=== PATIENT | female | born 2005 | race Caucasian/White ===

== ENCOUNTER 2024-08-30 12:23 | Emergency (ER) | payer BC, SELFPAY ==
[2024-08-30 12:47] VITALS: BP 132/69
--- NOTE | 2024-08-30 13:28 | ED.GENMED ---
History of Present Illness
General
Chief Complaint: Anxiety
Time Seen by Provider: 08/30/24 13:28
History of Present Illness
History of Present Illness:
TIME OF INITIAL ENCOUNTER: 1:30 PM
HPI: Upon my initial evaluation, the patient tells me 'I did not know what else to do'. She woke up with sensation of severe anxiety. She then developed bilateral facial tingling. She had questionable chest pain and shortness of breath. She has
had issues with anxiety in the past. She thought about self harming but did not do it. She has a history of self-harm from 3 years ago. She was seeing a therapist as an outpatient but 'things got weird' and she no longer seeing anybody. She
currently denies desire to harm self/denies thoughts of suicide.
EXAM:
GENERAL: Well appearing in no distress, but she appears tearful and upset
HEENT: Moist oral mucosa
CARDIOVASCULAR: No murmurs, normal heart rate, regular rhythm, No chest wall tenderness
PULMONARY: No respiratory distress, breath sounds are clear and equal
ABDOMEN: Soft with no peritoneal signs, no tenderness
NEUROLOGIC: Excellent strength all extremities, no coordination deficits
PSYCHIATRIC: Tearful and upset
EXTREMITIES: Nontender, no edema, moves all extremities equally
SKIN: No rash, no lesions
NUMBER AND COMPLEXITY OF PROBLEMS ADDRESSED AT THE ENCOUNTER
� Chronic conditions affecting care: Anxiety, gastritis
� Acute Exacerbation and/or Progression of Chronic Illness: This is an acute but recurring problem
� Differential Diagnosis includes: Severe anxiety, undiagnosed bipolar disorder depression, alcohol use disorder
AMOUNT AND/OR COMPLEXITY OF DATA TO BE REVIEWED AND ANALYZED
� I performed an independent evaluation of and my interpretation is:
EKG:
CT:
X-rays:
Laboratory Studies: CBC, chemistries, alcohol, hCG all negative
Other:
� Review of other/old records: I reviewed records, the patient has not been here in the past related to behavioral health/anxiety issues. She has been here twice in 2022 with abdominal
� Clinical information was obtained by an independent historian: I spoke to friend at bedside
� Prescriptions/Medications Considered but not given: Will hold off on prescription for benzo given the high addiction potential and her young age.
� Further testing considered but not performed:
RISK OF COMPLICATIONS AND/OR MORBIDITY OR MORTALITY OF PATIENT MANAGEMENT
� Social determinants of health affecting care: Lives at home, has friend at bedside currently
� Discussion with other providers: 1:35 PM: I have asked ann marie for consult and discussed case with Emmie
� Escalation of care including admission/observation vs risk of discharge considered: The patient tells me that she does not feel that she is a threat to her self. She denies any thoughts of suicide however she did have thoughts
of self-harm (cutting as she has done in the past). She appears markedly anxious and tearful�will give a one-time dose of benzos currently and check lab as she does have recent alcohol use as well.
ANY OTHER UPDATES:
3:05 PM: I reassessed patient. The patient is markedly improved. She was given a dose of Ativan. She was seen by ann marie Olea who recommends outpatient management and has given additional referral.
Past History
Past History
ED Past Medical History: Other (Gastritis)
ED Past Surgical History: None
Social History
Tobacco: Non-smoker
Alcohol: None
Drug: None
Personal: Single
Living: with roommate
Employment: Student
Family History
Family History: Other (Noncontributory)
Phy Exam
Physical Exam
Physical Exam:
See HPI
Course
Orders/Labs/Results
Orders:
Orders
08/30/24 12:51
Crisis Consult Urgent
Reason for Consult: SI, anxiety, alcoholism
08/30/24 13:38
Lorazepam [Ativan] 1 mg IV NOW STA
Test Result ONCE
08/30/24 14:17
Alcohol Urgent
Basic Metabolic Panel Urgent
Complete Blood Count/With Diff Urgent
HCG, Serum Qualitative Screen Urgent
08/30/24 14:17
08/30/24 14:17
Vital Signs
Initial and Last Documented VS:
Initial Vital Signs
Temp Pulse Resp BP Pulse Ox
37.1 C 93 20 132/69 100
08/30/24 12:47 08/30/24 12:47 08/30/24 12:47 08/30/24 12:47 08/30/24 12:47
Last Documented Vital Signs
Temp Pulse Resp BP Pulse Ox
37.1 C 93 20 132/69 100
08/30/24 12:47 08/30/24 12:47 08/30/24 12:47 08/30/24 12:47 08/30/24 12:47
*Critical Care Note
Total Time (30-74mins, 75-104mins- exclusive of procedures): Not Applicable
ED Attending Note
-
Portions of this chart may have been created with voice recognition software.� Occasional wrong word or��sound alike� substitutions may have occurred due to the inherent limitations of voice recognition software.
Discharge Plan
Departure
Patient Disposition: Home (Routine Discharge)
Date of Disposition: 08/30/24
Time of Disposition: 15:04
Patient with high blood pressure during this ER visit?: Yes
Discharge Problem:
Anxiety
Instructions: Anxiety, Adult (DC), BLOOD PRESSURE
Prescriptions:
No Action
loperamide [Imodium A-D] 2 mg capsule
2 mg PO Q6H PRN (Reason: loose stool) Qty: 20 0RF
pantoprazole [Protonix] 20 mg tablet,delayed release (DR/EC)
20 mg PO DAILY Qty: 20 0RF
Referrals:
Esteban Mcknight MD [Family Provider] -
Activity Restrictions/Additional Instructions:
We did give a one-time dose of Ativan. I generally do not recommend a prescription for these kind of medications as they are highly. They work best when only rarely taken. Your blood work is normal. Alcohol level is undetected. test
is negative. Please follow-up as recommended by Emmie, the river transportation worker. Return here if worse or other concerns.
Interventions
Interventions:
*Risk Screen - Suicide Last Done: 08/30/24 12:47
*General Assessment Last Done: 08/30/24 14:10
*Neglect/Abuse Screening Last Done: 08/30/24 14:10
*ED COVID-19 Vaccine History Last Done: 08/30/24 14:10
ED-Psychological Assessment Last Done: 08/30/24 14:10
Discharge Date and Time
Print Language: BARBADIAN
[2024-08-30] MEDS: ATIVAN 1 MG IV (14:15)
[2024-08-30 14:35] LABS: % Basophils 0.7 % (0-2); % Eosinophils 0.1 % (0-6); % Immature Granulocytes 0.4 % (0-0.5); % Monocytes 5.2 % (1.7-9.3); % Neutrophils 67.6 % (42.2-75.2); Absolute Basophils 0.1 10^3/uL (0-0.2); Absolute Lymphocytes 2.5 10^3/uL (1.2-3.4); Absolute Monocytes 0.5 10^3/uL (0.1-0.6); Absolute Neutrophils 6.5 10^3/uL (1.4-6.5); Hematocrit 44.1 % (37.0-47.0); Mean Corpuscular Hgb 30.7 pg (27.0-31.0); Mean Corpuscular Volume 90.4 fL (81.0-99.0); Mean Platelet Volume 9.7 fL (7.4-10.4); Nucleated Red Blood Cells % 0 %; Platelet Count 282 10^3/uL (130-400); Red Blood Cell Count 4.88 10^6/uL (4.20-5.40); Red Cell Dist. Width 12.8 % (11.5-14.5); White Blood Cell Count 9.7 10^3/uL (4.8-10.8)
[2024-08-30 14:45] LABS: HCG, Serum Qualitative Screen Negative
[2024-08-30 14:53] LABS: Blood Urea Nitrogen 17 mg/dl (7-17); Calcium 9.8 mg/dl (8.4-10.2); Carbon Dioxide 26 mmol/L (22-30); Chloride 100 mmol/L (98-107); Glucose 83 mg/dl (70-99); Potassium 4.3 mmol/L (3.5-5.1); Sodium 140 mmol/L (135-145); eGFR > 60.00
[2024-08-30 14:57] LABS: Alcohol None Detected
[2024-08-30 15:27] VITALS: BP 112/65
== END 2024-08-30 16:28 | disposition home or self-care (01) ==
LOC: EMR 12:23
PROVIDERS: EMERGENCY PHYSICIAN Emergency Medicine; FAMILY PHYSICIAN Internal Medicine
DX: F41.9 Anxiety disorder, unspecified (principal); Z91.52 Personal history of nonsuicidal self-harm; R03.0 Elevated blood-pressure reading, without diagnosis of hypertension
CPT/HCPCS: 99284; 96374; 80048; 82077; 84703; 85025; 87491; 87591

== ENCOUNTER 2025-04-09 16:01 | Emergency (ER) | payer BC, SELFPAY ==
[2025-04-09 16:06] VITALS: BP 115/73
[2025-04-09 16:13] VITALS: BMI 25.5
--- NOTE | 2025-04-09 17:04 | ED.GENMED ---
History of Present Illness
General
Chief Complaint: Allergic Reaction
Source: patient and significant other
Exam Limitations: none
Time Seen by Provider: 04/09/25 16:55
Nursing documentation reviewed up to this point in time: agreed with
History of Present Illness
History of Present Illness:
Note:
CHIEF COMPLAINT(S)
Bee sting reaction.
HISTORY OF PRESENT ILLNESS
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 She presented following a bee sting while sitting on the bleachers. The patient did not observe the bee, hence could not identify the type. The sting
immediately resulted in localized pain, prompting her to seek medical attention, arriving at the facility within approximately five minutes.
The patient did not administer her epinephrine autoinjector ('EpiPen') as she did not have it with her; however, she carries a new type of autoinjector at home, which she has not used before. Her last severe allergic reaction to a bee sting was
characterized by difficulty breathing, requiring two doses of epinephrine en route to the hospital.
Currently, the patient reports mild tingling on the right side of her face but denies throat discomfort or typical symptoms such as hives. She has undergone six months of allergen exposure therapy, attending every two weeks, which may have reduced
her sensitivity to the allergen. She noted a change in her reactions over time, with previous reactions being more severe, prompting her initial allergy testing which revealed sensitivity to multiple bee types.
PHYSICAL EXAM
General: Alert, no acute distress.
Skin: Warm, dry. No hives noted. erythema right upper arm
Head: Normocephalic, atraumatic.
Neck: Supple, trachea midline.
Eyes, Ears, Nose, Mouth, and Throat: Oral mucosa moist.
Cardiovascular: Normal peripheral perfusion, no edema.
Respiratory: Respirations are non-labored.
Gastrointestinal: Abdomen nondistended.
Back: Normal range of motion, normal alignment.
Musculoskeletal: Normal range of motion, normal strength.
Neurological: Alert and oriented to person, place, time, and situation, no focal neurological deficit observed.
Psychiatric: Cooperative, appropriate mood and affect.
PLAN
The patient will be observed for an additional period until approximately 6 PM to monitor for any delayed allergic reaction. The physician advised that delayed reactions, although uncommon, can occur. Further action, including administration of
epinephrine, will be taken if necessary.
DIFFERENTIAL DIAGNOSIS
The Differential Diagnosis includes, in no particular order and is not limited to:
1. Allergic reaction to bee sting
2. Anaphylaxis
3. Localized insect bite reaction
4. Anxiety-induced symptoms
5. Neurological response to insect venom
6. Idiopathic urticaria
7. Viral exanthema
8. Skin infection
9. Angioedema
10. Serum sickness-like reaction
CARE-UPDATE
04/09/25 - 18:47
Patient reports improvement and no longer requires epinephrine. Patient possesses epinephrine auto-injector at home. Condition stable and cleared for discharge. Advised on return precautions and instructed to follow up with primary care provider and
polystyrene molding machine tender for further evaluation and management.
Disposition:
SUMMARY OF ENCOUNTER
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 She experienced localized pain but did not utilize her epinephrine
injector, which was not available with her at the time. Due to previous severe reactions, she presented to the emergency department for evaluation. Current symptoms were mild and included localized tingling on the right side of her face. She
underwent allergen exposure therapy, which might have minimized the severity of her reactions. During her stay, she was monitored for any delayed or escalating reaction, none of which were observed.
DISPOSITION
Discharge
ASSESSMENT
The patient was assessed for a potential allergic reaction to the bee sting, considering her history and symptoms. Her stable condition and lack of severe symptoms at the end of her observation period indicated she was safe for discharge.
PLAN
The patient was observed until 6 PM to ensure there was no delay in symptom escalation. Discharge instructions included education on how to handle future bee stings, ensuring the epinephrine auto-injector is always kept accessible, follow-up with
primary care and polystyrene molding machine tender, and return precautions.
PATIENT EDUCATION AND COUNSELING
The patient was advised on avoiding potential exposure to bee stings, ensuring her epinephrine auto-injector is accessible at all times, and recognizing symptoms that require urgent medical attention. Emphasis was placed on follow-up with her
primary care provider and polystyrene molding machine tender.
FOLLOW-UP INSTRUCTIONS
The patient should follow up with her primary care provider and polystyrene molding machine tender for further evaluation and management. She is advised to call and schedule appointments at the earliest convenience.
MEDICAL DECISION MAKING
-Chronic conditions affecting care: Anaphylactic reactions to bee stings, Multiple bee allergen sensitivities
-Data:
Category 1
Non-emergency department records reviewed, if applicable. External record reviewed suggested that recent allergen exposure therapy may have reduced her sensitivity to bee stings, affecting the presentation of her symptoms.
-Risk:
Consideration of Admission/Observation: Escalation of care including admission/observation was considered given the complexity and risk of the patients presenting complaint, exam findings, and her underlying comorbidities. However, ultimately I feel
the patient is safe for outpatient management with close follow-up. Reasoning: Work-up reassuring, does not reveal any acute life/organ-threatening processes, patients symptoms well controlled upon reevaluation, reexamination is reassuring, vitals
are stable, patient agreeable with discharge, reliable for follow-up.
DIAGNOSIS
- Localized allergic reaction to bee sting (T63.441A)
- History of anaphylactic reaction to bee sting (Z87.892)
Past History
Past History
ED Past Medical History: Other (Gastritis)
ED Past Surgical History: None
Social History
Tobacco: Non-smoker
Alcohol: None
Drug: None
Personal: Single
Living: with roommate
Employment: Student
Family History
Family History: Other (Noncontributory)
Phy Exam
Physical Exam
Physical Exam:
.
Course
Vital Signs
Initial and Last Documented VS:
Initial Vital Signs
Temp Pulse Resp BP Pulse Ox
98.0 F 90 18 115/73 100
04/09/25 16:06 04/09/25 16:06 04/09/25 16:06 04/09/25 16:06 04/09/25 16:06
Last Documented Vital Signs
Temp Pulse Resp BP Pulse Ox
98.2 F 66 16 106/65 100
04/09/25 18:40 04/09/25 18:40 04/09/25 18:40 04/09/25 18:40 04/09/25 18:40
*Pulse Oximetry
SaO2: 100
Oxygen Mode of Delivery: Room air
Patient hypoxic: no
*Critical Care Note
Total Time (30-74mins, 75-104mins- exclusive of procedures): Not Applicable
ED Attending Note
-
Portions of this chart may have been created with voice recognition software.� Occasional wrong word or��sound alike� substitutions may have occurred due to the inherent limitations of voice recognition software.
Discharge Plan
Departure
Patient Disposition: Home (Routine Discharge)
Date of Disposition: 04/09/25
Time of Disposition: 18:49
Patient with high blood pressure during this ER visit?: No
Condition: Good
Discharge Problem:
Insect bite
Instructions: Insect bites and stings, Hives (DC)
Prescriptions:
No Action
loperamide [Imodium A-D] 2 mg capsule
2 mg PO Q6H PRN (Reason: loose stool) Qty: 20 0RF
pantoprazole [Protonix] 20 mg tablet,delayed release (DR/EC)
20 mg PO DAILY Qty: 20 0RF
Referrals:
PRIVATE,PHYSICIAN [Family Provider, Internal Medicine]
Activity Restrictions/Additional Instructions:
Follow up with primary care and polystyrene molding machine tender in 1-2 weeks. Return for any concerns.
Interventions
Interventions:
*Risk Screen - Suicide Last Done: 04/09/25 16:08
*General Assessment Last Done: 04/09/25 16:08
*Neglect/Abuse Screening Last Done: 04/09/25 16:08
*ED- Fall Risk Assessment Last Done: 04/09/25 16:13
*ED COVID-19 Vaccine History Last Done: 04/09/25 16:13
ED- Cardiac Assessment Last Done: 04/09/25 16:17
ED- Pulmonary Assessment Last Done: 04/09/25 16:17
ED-Skin Assessment Last Done: 04/09/25 16:17
Discharge Date and Time
Print Language: AMHARIC
[2025-04-09 18:40] VITALS: BP 106/65
== END 2025-04-09 18:56 | disposition home or self-care (01) ==
LOC: EMR 16:01
PROVIDERS: EMERGENCY PHYSICIAN Emergency Medicine
DX: T63.441A Toxic effect of venom of bees, accidental (unintentional), initial encounter (principal); Z91.030 Bee allergy status; Z87.892 Personal history of anaphylaxis
CPT/HCPCS: 99282

== ENCOUNTER 2025-05-31 22:44 | Emergency (ER) | payer BC, SELFPAY ==
[2025-05-31 22:47] VITALS: BP 116/85
[2025-05-31 23:04] VITALS: BMI 26.7
[2025-05-31 23:10] VITALS: BP 99/54
--- NOTE | 2025-05-31 23:16 | ED.CVA ---
History of Present Illness
General
Chief Complaint: CVA/TIA Symptoms
Source: patient
Exam Limitations: none
Time Seen by Provider: 05/31/25 23:10
Nursing documentation reviewed up to this point in time: agreed with
Onset of Stroke Symptoms
Onset of symptoms known: Yes
Date of onset of symptoms: 05/31/25
History of Present Illness
History of Present Illness:
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 She reports that she was on her feet today working at a [employer] when she was
speaking to a client and started to have visual disturbances. She described seeing close or spots in her vision similar to having someone flash a light in her eyes. This primarily affected the right side of her visual field. The visual
disturbance last around 30 minutes and slowly started to resolve. She felt headache at this time as well. She also felt confusion that lasted around an hour. During episode, she also experienced numbness in her right hand and difficulty with her
speech noting that she cannot get the words out that she wanted to say. She found this very distressing. Following episode, she went to rest at home with her eyes closed and laid down. She started to feel better. She called her mom who was
concerned about possible TIA and told her to report to the emergency department. The patient reports that she normally does not get headaches. She denies any neck pain. She denies any head or neck trauma. She never had an episode like this
before. She reports earlier when she had the visual changes she had a moment where she felt like she is going to fall feet. She denies chest pain, shortness of breath, palpitations. She denies any abdominal pain. Patient currently feels well
other than headache. She is not requesting any indication for headache at this time. She currently denies any dizziness, lightheadedness, one-sided weakness, visual changes. She denies any eye pain or ocular foreign body. She denies any history
of hypertension, hyperlipidemia, diabetes. She does not smoke.
Past History
Past History
ED Past Medical History: Other (Gastritis)
ED Past Surgical History: None
Social History
Tobacco: Non-smoker
Alcohol: None
Drug: None
Personal: Single
Living: with roommate
Employment: Student
Family History
Family History: Other (Noncontributory)
Review of Systems
Review of Systems
All Other Systems: ROS reviewed and negative except as documented in HPI and ROS
Phy Exam
Physical Exam
Physical Exam:
General: Patient is well appearing and in no acute distress; non-toxic
Skin: Warm and dry, no rashes or lesions
Head: Normocephalic, atraumatic
Eyes: Sclera non-icteric. EOMs intact.
Cardiac: Regular rate and rhythm, no murmurs
Peripheral Vascular: No lower extremity swelling or edema
Pulm: Normal respiratory effort
Abdomen: No abdominal tenderness to palpation
Neuro: CN II-XII intact, no focal neurologic deficits. Normal finger-nose, [id number]. Sensation intact. 5 out of 5 strength in bilateral upper and lower extremities.
Psychiatric: Appropriate mood and affect.
Scores
NIH Stroke Score
Level of Consciousness: 0 - Alert
LOC Questions: 0-Answers both correctly
LOC Commands: 0-Performs both correctly
Best Horizontal Gaze: 0-Normal
Visual Thomas: 0=Normal, no visual loss
Facial Palsy: 0=Normal, symmetrical
Motor - Right Arm: 0=No drift 10 seconds
Motor - Left Arm: 0=No drift 10 seconds
Motor - Right Le-No drift 5 seconds
Motor - Left Le-No drift 5 seconds
Limb Ataxia: 0-Absent
Sensation: 0-Normal
Best Language: 0-No aphasia
Dysarthria: 0-Normal
Extinction and Inattention: 0-No abnormality
NIH Total Score:: 0
Course
Orders/Labs/Results
Orders:
Orders
10/28/25 23:39
Electrocardiogram (*1) Urgent
Reason for Study: Syncope
CT Head W/o Iv Contrast Urgent
Comment:
Reason For Exam: headache, transient blurry vision/right sided weak
EKG- Treatment ONCE
05/31/25 23:51
Complete Blood Count/With Diff Urgent
Comprehensive Metabolic Panel Urgent
HCG, Serum Qualitative Screen Urgent
Comment: ADDED
06/01/25 00:10
Add On- LAB Urgent
Tests Added?: beta qualitative
Abnormal Lab Results
05/31/25
23:51
Absolute Monos (auto) 0.8 H 10^3/uL
(0.1-0.6)
05/31/25 23:51
05/31/25 23:51
Vital Signs
Initial and Last Documented VS:
Initial Vital Signs
Temp Pulse Resp BP Pulse Ox
98.5 F 82 22 116/85 99
05/31/25 22:47 05/31/25 22:47 05/31/25 22:47 05/31/25 22:47 05/31/25 22:47
Last Documented Vital Signs
Temp Pulse Resp BP Pulse Ox
98.5 F 83 18 93/54 98
05/31/25 22:47 06/01/25 01:49 06/01/25 01:49 06/01/25 01:49 06/01/25 01:49
MDM/Problems Addressed
Differential Diagnosis Includes:
Differentials include complex migraine, TIA, presyncope, conversion disorder, pseudotumor cerebri,
MDM/Problems Addressed:
20-year-old female presents the ER today with concerns of transient blurred vision, right hand numbness, and speech difficulties. This all resolved without intervention but currently she complains of a persistent headache. She reports that she
typically does not get headaches. Currently denying any dizziness, lightheadedness. She do not have any loss of consciousness. Denies any palpitations. Physical exam she is well-appearing no acute distress. She is no focal neurologic deficits.
She has no risk factors for CVA. Suspect possible complex migraine, symptoms are improving. Vital signs are stable. Will obtain CBC, CMP, ECG and CT of the head.
CBC and CMP unremarkable. Urine negative. CT of the head normal. EKG unremarkable. Suspect presyncopal episode versus complex migraine. Advised patient to stay well-hydrated and ibuprofen and Tylenol as needed for headache.
Reassessment, her headache has resolved and she is asymptomatic at time of discharge. Discussed follow-up as outpatient with neurology. Reviewed case with ED attending. Patient stable for discharge.
*Pulse Oximetry
SaO2: 99
Oxygen Mode of Delivery: Room air
Patient hypoxic: no
*Critical Care Note
Total Time (30-74mins, 75-104mins- exclusive of procedures): Not Applicable
ED Attending Note
-
Portions of this chart may have been created with voice recognition software.� Occasional wrong word or��sound alike� substitutions may have occurred due to the inherent limitations of voice recognition software.
Discharge Plan
Departure
Patient Disposition: Home (Routine Discharge)
Patient with high blood pressure during this ER visit?: No
Condition: Good
Discharge Problem:
Transient paresthesia, Difficulty with speech
Instructions: Dysarthria, Hand Numbness
Prescriptions:
No Action
loperamide [Imodium A-D] 2 mg capsule
2 mg PO Q6H PRN (Reason: loose stool) Qty: 20 0RF
pantoprazole [Protonix] 20 mg tablet,delayed release (DR/EC)
20 mg PO DAILY Qty: 20 0RF
Referrals:
Jesusita Pickens MD [Non-Admitting Privileges, Neurology]
Esteban Mcknight MD [Family Provider]
Activity Restrictions/Additional Instructions:
Please call the attached number to schedule an appointment to be evaluated by neurology.
PLEASE CALL THE ATTACHED NUMBER SHOULD YOU DEVELOP CHEST PAIN, SHORTNESS OF BREATH, PALPITATIONS, LIGHTHEADEDNESS, FAINTING SPELLS, INTRACTABLE NAUSEA OR VOMITING, WEAKNESS ON ONE SIDE OF THE BODY VS THE OTHER, OR ANY OTHER SIGNS OR SYMPTOMS
WORRISOME TO YOU.
Interventions
Interventions:
*Risk Screen - Suicide Last Done: 05/31/25 22:48
*General Assessment Last Done: 05/31/25 22:48
*Neglect/Abuse Screening Last Done: 05/31/25 22:48
*ED- Fall Risk Assessment Last Done: 05/31/25 23:05
*ED COVID-19 Vaccine History Last Done: 05/31/25 23:05
*ED Influenza Vaccine History Last Done: 05/31/25 23:05
*Nursing Disposition Last Done: 06/01/25 01:54
ED- Pulmonary Assessment Last Done: 05/31/25 23:05
ED- Neurological Assessment Last Done: 05/31/25 23:05
ED- Cardiac Assessment Last Done: 05/31/25 23:05
ED Swallowing Screen Last Done: 05/31/25 23:05
Discharge Date and Time
Discharge Date/Time: 06/01/25 02:00
Print Language: NAURUAN
[2025-06-01 00:01] LABS: Hematocrit 41.0 % (37.0-47.0); Hemoglobin 14.0 g/dL (12.0-16.0); Mean Corp Hgb Conc. 34.1 g/dL (33.0-37.0); Mean Corpuscular Volume 89.9 fL (81.0-99.0); Nucleated Red Blood Cells % 0 %; Platelet Count 231 10^3/uL (130-400); Red Cell Dist. Width 12.3 % (11.5-14.5)
[2025-06-01 00:22] LABS: ALT (SGPT) 13 U/L (0-35); AST (SGOT) 18 U/L (14-36); Albumin 4.3 g/dl (3.5-5.0); Alkaline Phosphatase 44 U/L (38-126); Blood Urea Nitrogen 12 mg/dl (7-17); Calcium 9.1 mg/dl (8.4-10.2); Carbon Dioxide 27 mmol/L (22-30); Chloride 105 mmol/L (98-107); Estimated Creatinine Clearance 108 ml/min; Glucose 91 mg/dl (70-99); Potassium 4.1 mmol/L (3.5-5.1); Sodium 139 mmol/L (135-145); Total Protein 6.6 g/dl (6.3-8.2); eGFR > 60.00
[2025-06-01 00:31] LABS: HCG, Serum Qualitative Screen Negative
[2025-06-01 01:49] VITALS: BP 93/54
== END 2025-06-01 02:00 | disposition home or self-care (01) ==
LOC: EMR 22:44
PROVIDERS: Physician Assistant; EMERGENCY PHYSICIAN Student in an Organized Health Care Education/Training Program; FAMILY PHYSICIAN Internal Medicine
DX: R20.2 Paresthesia of skin (principal); R47.1 Dysarthria and anarthria
CPT/HCPCS: 99284; 70450; 80053; 84703; 85025; 93005